=== PATIENT | male | born 1970 | race Caucasian/White ===

== ENCOUNTER → 2016-12-21 | Outpatient (CLI) | payer MEDICARE, OTHER ==
--- NOTE | 2016-12-21 13:51 | MR ---
EXAMINATION TYPE: MR lumbar spine wo con DATE OF EXAM: 12/21/2016 10:51 AM COMPARISON: 12/18/2016 HISTORY: Lumbago TECHNIQUE: T1 and T2 axial and sagittal images of the lumbar spine are submitted. FINDINGS: There is no abnormal signal seen within the visualized spinal cord or paraspinal soft tissu es. Parapelvic renal cysts are noted on the left. At L1-2 there is no evidence of disc herniation or canal stenosis. Mild hypertrophic change of the fa cets. At L2-3 there is moderate facet arthropathy. No disc herniation or canal stenosis. No foraminal encro achment. At L3-4 there is there is mild degenerative disc disease with circumferential disc bulging and modera te to severe facet arthropathy. Mild to moderate bilateral foraminal encroachment and mild canal sten osis. At L4-5 there is degenerative disc disease with broad-based and diffuse disc bulging. Moderate to sev ere bilateral foraminal encroachment and moderate canal stenosis. At L5-S1 there is broad-based central disc protrusion with mild effacement of thecal sac. Marked face t arthropathy with moderate to severe bilateral foraminal encroachment. Mild canal stenosis. IMPRESSION: 1. Multilevel canal stenosis secondary to disc bulging or protrusion with productive facet arthropath y. Significant bilateral multilevel foraminal encroachment as discussed above. Progression at L3-4.
== END | disposition home or self-care (01) ==
LOC: RADMRIMAIN 10:09
PROVIDERS: ATTEND Psychiatry & Neurology Neurology
DX: M48.06 Spinal stenosis, lumbar region (principal); M51.26 Other intervertebral disc displacement, lumbar region; M46.96 Unspecified inflammatory spondylopathy, lumbar region
CPT/HCPCS: 72148

== ENCOUNTER 2018-10-26 20:05 | Observation (INO) | payer MEDICARE, OTHER ==
[2018-10-26] MEDS ORDERED: HEPARIN SODIUM,PORCINE 5,000 UNIT/ML 1 ML VIAL IV PRN (20:38)
[2018-10-26] MEDS ORDERED: HEPARIN SODIUM,PORCINE 10,000 UNIT/ML 1 ML VIAL IV ONE (20:38)
--- NOTE | 2018-10-26 20:40 | ED ---
General Adult HPI <Jc Sung - Last Filed: 10/26/18 22:25> - General Source: patient, EMS Mode of arrival: EMS Limitations: no limitations <Alexey Teran - Last Filed: 11/01/18 15:54> - General Chief complaint: Recheck/Abnormal Lab/Rx Stated complaint: GROIN PAIN Time Seen by Provider: 10/26/18 20:10 - Related Data Home Medications Medication Instructions Recorded Confirmed Budesonide-Formot 160-4.5 Mcg 2 puff INHALATION RT-BID 10/09/14 10/26/18 [Symbicort 160-4.5 Mcg Inhaler] Cyclobenzaprine [Flexeril] 10 mg PO TID 10/09/14 10/26/18 Pregabalin [Lyrica] 300 mg PO BID 10/09/14 10/26/18 DULoxetine HCL [Cymbalta] 60 mg PO BID 01/19/15 10/26/18 Lisinopril [Prinivil] 20 mg PO DAILY 01/19/15 10/26/18 lamoTRIgine [LaMICtal] 100 mg PO DAILY 01/19/15 10/26/18 Morphine Sulfate ER [Ms Contin] 15 mg PO Q12HR 01/09/18 10/26/18 Morphine Sulfate ER [Ms Contin] 30 mg PO Q12HR 01/09/18 10/26/18 Albuterol Inhaler [Ventolin Hfa 2 puff INHALATION RT-QID 10/26/18 10/26/18 Inhaler] Butalb/APAP/Caff 50-325-40Mg 1 tab PO Q8H 10/26/18 10/26/18 [Fioricet 50-325-40] Ferrous Sulfate [Feosol] 325 mg PO DAILY 10/26/18 10/26/18 Furosemide [Lasix] 20 mg PO DAILY 10/26/18 10/26/18 Ipratropium-Albuterol Nebulize 3 ml INHALATION RT-QID 10/26/18 10/26/18 [Duoneb 0.5 mg-3 mg/3 ml Soln] Omeprazole 20 mg PO DAILY 10/26/18 10/26/18 Potassium Chloride [K-Tab ER] 10 meq PO DAILY 10/26/18 10/26/18 Allergies Allergy/AdvReac Type Severity Reaction Status Date / Time Penicillins Allergy Unknown Verified 10/26/18 20:27 Childhood Review of Systems ROS Other: All systems not noted in ROS Statement are negative. <Jc Sung - Last Filed: 10/26/18 22:25> ROS Other: All systems not noted in ROS Statement are negative. <Alexey Teran - Last Filed: 11/01/18 15:54> ROS Statement: Those systems with pertinent positive or pertinent negative responses have been documented in the HPI. Past Medical History Past Medical History: Diabetes Mellitus, Deep Vein Thrombosis (DVT), GERD/Reflux , Hyperlipidemia, Hypertension, Osteoarthritis (OA), Sleep Apnea/CPAP/BIPAP Additional Past Medical History / Comment(s): BACK PAIN, HIATAL HERNIA , HX OF DVT 2002 , No longer uses C-PAP MACHINE, HX OF FALL FROM 6 FT LADDER & COLLAPSED LUNG., NEUROPATHY LEGS & FEET. History of Any Multi-Drug Resistant Organisms: MRSA Date of last positivie culture/infection: 05/2015 MDRO Source:: Right Hand, Base of head and neck Past Surgical History: Bariatric Surgery, Cholecystectomy, Hernia Repair, Orthopedic Surgery Additional Past Surgical History / Comment(s): EGD 09/07 , INGUINAL HERNIA, LEFT ROTATOR CUFF REPAIR, THUMB SURG., LUNG SURGERY (2002 AFTER FALL ).01-26-15 HAD GASTRIC SX- ROU EN Y. 2014 amputation of 3rd and 4th toe right foot. No toes on right foot. Past Anesthesia/Blood Transfusion Reactions: No Reported Reaction Past Psychological History: No Psychological Hx Reported Smoking Status: Former smoker Past Alcohol Use History: None Reported Past Drug Use History: Marijuana - Past Family History Mother Family Medical History: Deep Vein Thrombosis (DVT) Father Family Medical History: Cancer Additional Family Medical History / Comment(s): . <Alexey Teran - Last Filed: 11/01/18 15:54> General Exam Limitations: no limitations <Alexey Teran - Last Filed: 11/01/18 15:54> Vital Signs 10/26/18 10/27/18 20:10 00:20 Temperature 97.6 F 98.7 F Pulse Rate 61 63 Respiratory 18 16 Rate Blood Pressure 122/75 110/65 O2 Sat by Pulse 97 97 Oximetry Medical Decision Making <Jc Sung - Last Filed: 10/26/18 22:25> - Lab Data Result diagrams: 10/27/18 08:33 10/27/18 08:33 <Alexey Teran - Last Filed: 11/01/18 15:54> - Medical Decision Making Dictation was produced using [employer] dictation software. please excuse any grammatical, word or spelling errors. Chief Complaint: 48-year-old male with multiple comorbidities transfusion here from [facility] for left lower extremity ultrasound possible diabetic foot ulcer. History of Present Illness: Patient's 48-year-old female. She states that she' s been having left groin pain and left Pricilla swelling for approximately one week. States that he was st Primary care doctor however ended up at the emergency department. He performed labs and imaging studies. There was no HPI transferred with patient. Patient states he is here for ultrasound. Patient states that he does have some abdominal pain with urination. According to patient he also received antibiotics for possible diabetic foot ulcer. He was started on heparin and given vancomycin. The ROS documented in this emergency department record has been reviewed and confirmed by me. Those systems with pertinent positive or negative responses have been documented in the HPI. All other systems are other negative and/or noncontributory. PHYSICAL EXAM: General Impression: Alert and oriented x3, not in acute distress HEENT: Normocephalic atraumatic, extra-ocular movements intact, pupils equal and reactive to light bilaterally, mucous membranes moist. Cardiovascular: Heart regular rate and rhythm, S1&S2 audible, no murmurs, rubs or gallops Chest: Lungs clear to auscultation bilaterally, no rhonchi, no wheeze, no rales Abdomen: Bowel sounds present, abdomen soft, non-tender, non-distended, no organomegaly Musculoskeletal: Pulses present and equal in all extremities, no peripheral edema, tenderness to palpation over the left groin area. No palpable hernia with Valsalva Motor: Power 5/5 bilaterally, no focal deficits noted Neurological: CN II-XII grossly intact, no focal motor or sensory deficits noted Skin: Ulcer noted to the second toe on the left foot without any significant tract to the bone Psych: Normal affect and mood ED course: 48-year-old male presents via transfer from [facility] for diabetic foot ulcer and possible left lower extremity deep venous thrombosis. Signs upon arrival are within acceptable limits. Patient is sent out to oncoming physician for follow-up of ultrasound and further care. (Alexey Teran) Disposition <Jc Sung - Last Filed: 10/26/18 22:25> Decision Time: 15:54 <Alexey Teran - Last Filed: 11/01/18 15:54> Clinical Impression: Leg swelling Disposition: ADMITTED IP TO THIS HOSP Condition: Stable
[2018-10-26] MEDS ORDERED: HEPARIN SOD,PORK IN 0.45% NACL 25,000 UNIT in 0.45% NACL 1 250ML.BAG IV SCH (20:45)
--- NOTE | 2018-10-26 21:23 | US ---
EXAMINATION TYPE: US venous doppler duplex LE LT DATE OF EXAM: 10/26/2018 8:36 PM COMPARISON: NONE CLINICAL HISTORY: Pain. left groin pain and known left foot infection SIDE PERFORMED: Left TECHNIQUE: The lower extremity deep venous system is examined utilizing real time linear array sonog katt with graded compression, doppler sonography and color-flow sonography. VESSELS IMAGED: External Iliac Vein (EIV) Common Femoral Vein Deep Femoral Vein Greater Saphenous Vein * Femoral Vein Popliteal Vein Small Saphenous Vein * Proximal Calf Veins (* superficial vessels) Left Leg: Appears negative for DVT, 3.9cm cluster of lymph nodes seen at level of patients complaint in left groin IMPRESSION: No evidence of deep venous thrombosis in the left leg. There is left inguinal adenopathy.
[2018-10-26] MEDS ORDERED: NALOXONE 0.4 MG/ML 1 ML VIAL IV PRN (22:37)
[2018-10-26] MEDS ORDERED: VANCOMYCIN IV PER PHARMACY 1 EACH MISC MISCELLANE PRN (22:55)
[2018-10-26] MEDS ORDERED: BUTALB/APAP/CAFF 50-325-40MG TAB PO PRN (23:00)
[2018-10-27 00:41] LABS: Glucose,Whole Blood 108 mg/dL (75-99)
--- NOTE | 2018-10-27 02:18 | P.HPIM ---
History of Present Illness H&P Date: 10/27/18 Chief Complaint: Transfer from [facility] for venous duplex ultrasound 48-year-old male with history of diabetes. Patient was transferred from [facility] to our facility to have a venous duplex ultrasound of the lower extremities to rule out DVT. This was done in the ED and there was no evidence of DVT. Patient went to the [facility] to 1-2 day history of off-and-on left groin pain he describes this sharp pain no precipitating factors rated at 7 out of 10 in severity and nonradiating happened all of a sudden never experienced something similar in the past it is associated with some dysuria denies any flank pain fevers chills nausea vomiting denies any hematuria denies any urgency or frequency in urination denies any neck trachea. Patient also reported some pain in his left thigh and leg without any swelling. He also has wound over his left second toe from the plantar surface this been going on for couple weeks. Denies any drainage. Patient otherwise denies any shortness of breath or chest pain trouble breathing fevers chills coughing abdominal pain denies any diarrhea denies any focal neurologic deficits. Venous duplex ultrasound was performed and was negative for DVT At her left facility CAT scan of the abdomen was performed and showed hydronephrosis over the left kidney without any evidence of ureteral dilatation or stones. Patient currently feels comfortable sleeping with minimal pain. In the emergency department initially patient was started on heparin drip after obtaining results venous duplex ultrasound heparin drip was discontinued. Patient received a dose of vancomycin as [facility]. Review of Systems Pertinent positives as noted in HPI. All other systems were reviewed and are negative Patient indicated he is not using his CPAP anymore or any insulin or oral hypoglycemic agents since he had lost significant amount of weight after his gastric bypass surgery. Past Medical History Past Medical History: Diabetes Mellitus, Deep Vein Thrombosis (DVT), GERD/Reflux , Hyperlipidemia, Hypertension, Osteoarthritis (OA), Sleep Apnea/CPAP/BIPAP Additional Past Medical History / Comment(s): BACK PAIN, HIATAL HERNIA , HX OF DVT 2002 , No longer uses C-PAP MACHINE, HX OF FALL FROM 6 FT LADDER & COLLAPSED LUNG (2002)., NEUROPATHY LEGS & FEET. History of Any Multi-Drug Resistant Organisms: MRSA Date of last positivie culture/infection: 05/2015 MDRO Source:: Right Hand, Base of head and neck Past Surgical History: Bariatric Surgery, Cholecystectomy, Hernia Repair, Orthopedic Surgery Additional Past Surgical History / Comment(s): EGD 09/07 , INGUINAL HERNIA, LEFT ROTATOR CUFF REPAIR, THUMB SURG., LUNG SURGERY (2003 AFTER FALL ).01-26-15 HAD GASTRIC SX- ROU EN Y. 2014 amputation of 3rd and 4th toe right foot. No toes on right foot. heart cath 2013 with no stents Past Anesthesia/Blood Transfusion Reactions: No Reported Reaction Past Psychological History: No Psychological Hx Reported Additional Psychological History / Comment(s): states "mood disorder" Smoking Status: Former smoker Past Alcohol Use History: None Reported Additional Past Alcohol Use History / Comment(s): HAS QUIT SMOKING IN PAST FROM 2002 TO 2006 THEN STARTED BACK UP BUT QUIT AGAIN Past Drug Use History: Marijuana - Past Family History Mother Family Medical History: Deep Vein Thrombosis (DVT) Father Family Medical History: Cancer Additional Family Medical History / Comment(s): . Medications and Allergies Home Medications Medication Instructions Recorded Confirmed Type Budesonide-Formot 160-4.5 Mcg 2 puff INHALATION RT-BID 10/09/14 10/26/18 History [Symbicort 160-4.5 Mcg Inhaler] Cyclobenzaprine [Flexeril] 10 mg PO TID 10/09/14 10/26/18 History Pregabalin [Lyrica] 300 mg PO BID 10/09/14 10/26/18 History DULoxetine HCL [Cymbalta] 60 mg PO BID 01/19/15 10/26/18 History Lisinopril [Prinivil] 20 mg PO DAILY 01/19/15 10/26/18 History lamoTRIgine [LaMICtal] 100 mg PO DAILY 01/19/15 10/26/18 History Morphine Sulfate ER [Ms Contin 15 mg PO Q12HR 01/09/18 10/26/18 History 15Mg] Morphine Sulfate ER [Ms Contin 30 mg PO Q12HR 01/09/18 10/26/18 History 30Mg] Albuterol Inhaler [Ventolin Hfa 2 puff INHALATION RT-QID 10/26/18 10/26/18 History Inhaler] Budesonide [Pulmicort] 0.5 mg INHALATION RT-BID 10/26/18 10/26/18 History Butalb/APAP/Caff 50-325-40Mg 1 tab PO Q8H 10/26/18 10/26/18 History [Fioricet 50-325-40] Ferrous Sulfate [Feosol] 325 mg PO DAILY 10/26/18 10/26/18 History Furosemide [Lasix] 20 mg PO DAILY 10/26/18 10/26/18 History Ipratropium-Albuterol Nebulize 3 ml INHALATION RT-QID 10/26/18 10/26/18 History [Duoneb 0.5 mg-3 mg/3 ml Soln] Omeprazole 20 mg PO DAILY 10/26/18 10/26/18 History Potassium Chloride [K-Tab ER] 10 meq PO DAILY 10/26/18 10/26/18 History Allergies Allergy/AdvReac Type Severity Reaction Status Date / Time Penicillins Allergy Unknown Verified 10/26/18 20:27 Childhood Physical Exam Vitals: Vital Signs Temp Pulse Resp BP Pulse Ox 10/27/18 01:20 16 10/27/18 00:20 98.7 F 63 16 110/65 97 10/26/18 20:10 97.6 F 61 18 122/75 97 Intake and Output 10/26/18 10/26/18 10/27/18 14:59 22:59 06:59 Other: Voiding Method Toilet Toilet Weight 99.79 kg Constitutional: No acute distress, conversant, pleasant Eyes: Anicteric sclerae, moist conjunctiva, no lid-lag Pupils equal round reactive to light ENMT: NC/AT Oropharynx clear, no erythema, exudates Neck: Supple, FROM, no masses, or JVD No carotid bruits No thyromegaly Lungs: Clear to auscultation Clear to percussion Normal respiratory effort, no accessory muscle use Cardiovascular: Heart regular in rate and rhythm, No murmurs, gallops, or rubs No peripheral edema Abdominal: Soft Nontender, no guarding, rebound or rigidity Abdomen moving with respiration Normoactive bowel sounds No hepatomegaly, No splenomegaly No palpable mass No abdominal wall hernia noted Skin: Normal temperature, tone, texture, turgor No induration No subcutaneous nodules No rash, lesions Ulcer 1 x 1 cm over the plantar aspect of the left second toe not probing to the bone, no drainage, slight redness no induration no tenderness to palpation Extremities: Patient has right mid metatarsal" No digital cyanosis No clubbing Pedal pulses intact over the left foot, weak over the right foot Radial pulses intact and symmetrical No calf tenderness Psychiatric: Alert and oriented to person, place and time Appropriate affect fair judgment Neuro Muscles Strength 5/5 in all 4 extremities Sensation to light touch grossly present throughout Cranial nerves II-XII grossly intact No focal sensory deficits Lymphatics: no palpable cervical or supraclavicular , or inguinal lymph nodes Results Labs: Abnormal Lab Results - Last 24 Hours (Table) 10/27/18 Range/Units 00:40 POC Glucose (mg/dL) 108 H (75-99) mg/dL Thrombosis Risk Factor Assmnt - Choose All That Apply Any of the Below Risk Factors Present?: Yes Each Factor Represents 1 point: Age 41-60 years, Obesity (BMI >25) Each Risk Factor Represents 3 Points: History of DVT/PE Thrombosis Risk Factor Assessment Total Risk Factor Score: 5 Thrombosis Risk Factor Assessment Level: High Risk Assessment and Plan Assessment: 48-year-old male with history of diabetes admitted under observation with anticipated length of stay less than 48 hours was transferred from [facility] to obtain venous duplex ultrasound to rule out left lower extremity DVT. Patient presented to their facility with left groin pain. Computed tomography scan of the abdomen showed left hydronephrosis. Patient also has left foot diabetic ulcer. Patient labs from [facility] were reviewed and were all unremarkable Plan: Left hydronephrosis Dysuria Check urine analysis No leukocytosis no fevers Diabetic foot ulcer over the left second toe plantar aspect With care ID consultation Patient received a dose of vancomycin at [facility] No fevers no leukocytosis History of diabetes mellitus currently not on any medications Insulin sliding scale Patient was initiated on heparin drip at [facility] due to suspicion of left leg DVT, venous duplex ultrasound at our facility showed no evidence of deep venous thrombosis. Heparin drip discontinued DVT prophylaxis heparin subcu 3 times a day Hypertension currently stable COPD currently compensated Surrogate decision-maker: Patient's Sister CODE STATUS: Full code Discussed with: Patient, ER, RN Anticipated discharge: <[address]: Home A total of 55 minutes was spent on the care of this complex patient more than 50 % of the time was spent in counseling and care coordination.
[2018-10-27] MEDS ORDERED: VANCOMYCIN 1,500 MG in SODIUM CHLORIDE 0.9% 250 ML IVPB SCH (02:30)
[2018-10-27 02:52] LABS: Appearance,Urine Clear (Clear); Bilirubin,Urine Negative (Negative); Blood,Urine Negative (Negative); Color,Urine Yellow; Glucose,Urine (UA) Negative (Negative); Ketones,Urine Negative (Negative); Leukocyte Esterase,Urine Negative (Negative); Nitrite,Urine Negative (Negative); PH, Urine 5.5 (5.0-8.0); Protein,Urine Negative (Negative); Specific Gravity,Urine 1.014 (1.001-1.035); Urobilinogen,Urine <2.0 mg/dL (<2.0)
[2018-10-27] MEDS: VANCOMYCIN 1,750 MG in SODIUM CHLORIDE 0.9% 500 ML 500 ML IVPB SCH ×2 (02:56→14:58)
[2018-10-27] MEDS: SODIUM CHLORIDE 0.9% 1,000 ML IV SCH ×2 (02:56→20:53)
[2018-10-27 06:51] LABS: Glucose,Whole Blood 80 mg/dL (75-99)
[2018-10-27] MEDS: SYMBICORT 160-4.5 MCG INHALER INHALATION SCH ×2 (07:42→21:21)
[2018-10-27] MEDS: IPRATROPIUM-ALBUTEROL 3 ML NEB INHALATION SCH ×4 (07:42→21:21)
[2018-10-27] MEDS ORDERED: BUDESONIDE 0.5 MG/2 ML NEBU INHALATION SCH (08:00)
[2018-10-27] MEDS ORDERED: ALBUTEROL INHALER 60 PUFF/8 GM INHALER INHALATION SCH (08:00)
[2018-10-27 08:55] LABS: Basophils % (A) 0 %; Eosinophils # (A) 0.2 k/uL (0-0.7); Eosinophils % (A) 2 %; HCT 37.9 % (39.0-53.0); HGB 11.8 gm/dL (13.0-17.5); Lymphocytes # (A) 1.5 k/uL (1.0-4.8); Lymphocytes % (A) 22 %; MCH 29.3 pg (25.0-35.0); MCHC 31.3 g/dL (31.0-37.0); MCV 93.8 fL (80.0-100.0); Mean Platelet Volume 7.1; Monocytes # (A) 0.3 k/uL (0-1.0); Monocytes % (A) 4 %; Neutrophils # (A) 4.7 k/uL (1.3-7.7); Neutrophils % (A) 70 %; Platelet Count 195 k/uL (150-450); RBC 4.04 m/uL (4.30-5.90); WBC 6.8 k/uL (3.8-10.6)
[2018-10-27 09:05] LABS: Anion Gap 5 mmol/L; Blood Urea Nitrogen 15 mg/dL (9-20); Calcium 8.4 mg/dL (8.4-10.2); Carbon Dioxide 26 mmol/L (22-30); Chloride 110 mmol/L (98-107); Glucose 187 mg/dL (74-99); Sodium 141 mmol/L (137-145)
[2018-10-27 09:06] LABS: Potassium 4.6 mmol/L (3.5-5.1)
[2018-10-27] MEDS: MORPHINE SULFATE ER 15 MG TABLET PO SCH ×2 (09:15→20:52)
[2018-10-27] MEDS: PREGABALIN 100 MG CAP PO SCH ×2 (09:15→20:53)
[2018-10-27] MEDS: DULoxetine HCL 60 MG CAPSULE.DR PO SCH ×2 (09:16→20:52)
[2018-10-27] MEDS: CYCLOBENZAPRINE 10 MG TAB PO SCH ×3 (09:16→20:52)
[2018-10-27] MEDS: POTASSIUM CHLORIDE ER 10 MEQ TAB.ER.PRT PO SCH (09:16)
[2018-10-27] MEDS: MORPHINE SULFATE ER 30 MG TABLET PO SCH ×2 (09:16→20:52)
[2018-10-27] MEDS: FUROSEMIDE 20 MG TAB PO SCH (09:16)
[2018-10-27] MEDS: PANTOPRAZOLE 40 MG TABLET PO SCH (09:16)
[2018-10-27] MEDS: lamoTRIgine 100 MG TAB PO SCH (09:16)
[2018-10-27] MEDS: FERROUS SULFATE 325 MG TAB PO SCH (09:16)
[2018-10-27] MEDS: LISINOPRIL 20 MG TAB PO SCH (09:17)
[2018-10-27 11:47] LABS: Glucose,Whole Blood 116 mg/dL (75-99)
[2018-10-27] MEDS ORDERED: INSULIN ASPART 100 UNIT/ML 1 ML 10 ML VIAL SQ SCH (12:30)
--- NOTE | 2018-10-27 13:01 | P.GSCN ---
History of Present Illness Consult date: 10/27/18 History of present illness: The patient is a 48-year-old diabetic who came from [facility] emergency room for further evaluation of left lower quadrant left groin and left foot pain. The patient is a known diabetic with previous right toe amputation. He was sent down for further evaluation for possible DVT. During this evaluation he apparently had a CAT scan of the chest and abdomen. CAT scan of the abdomen showed mild to moderate left hydronephrosis and we're asked see the patient. The patient is interviewed at the bedside and is comfortable. He denies any urologic history. He denies any hematuria. There is no history of stones. He did state several days ago for a couple of days he had severe left upper quadrant pain. The CAT scan shows what appears to be a left UPJ obstruction mild to moderate. There is some mild caliectasis. There is a 6-7 mm stone in the left lower pole calyx. The ureter and bladder unremarkable. His urine is clear. His creatinine is 0.9. Review of Systems - Constitutional Reports chronic pain - Gastrointestinal Reports as per HPI - Musculoskeletal Reports as per HPI Past Medical History Past Medical History: Diabetes Mellitus, Deep Vein Thrombosis (DVT), GERD/Reflux , Hyperlipidemia, Hypertension, Osteoarthritis (OA), Sleep Apnea/CPAP/BIPAP Additional Past Medical History / Comment(s): BACK PAIN, HIATAL HERNIA , HX OF DVT 2002 , No longer uses C-PAP MACHINE, HX OF FALL FROM 6 FT LADDER & COLLAPSED LUNG (2002)., NEUROPATHY LEGS & FEET. History of Any Multi-Drug Resistant Organisms: MRSA Year Discovered:: 05/2015 MDRO Source:: Right Hand, Base of head and neck Past Surgical History: Bariatric Surgery, Cholecystectomy, Hernia Repair, Orthopedic Surgery Additional Past Surgical History / Comment(s): EGD 09/07 , INGUINAL HERNIA, LEFT ROTATOR CUFF REPAIR, THUMB SURG., LUNG SURGERY (2002 AFTER FALL ).5 HAD GASTRIC SX- ROU EN Y. 2014 amputation of 3rd and 4th toe right foot. No toes on right foot. heart cath 2013 with no stents Past Anesthesia/Blood Transfusion Reactions: No Reported Reaction Past Psychological History: No Psychological Hx Reported Additional Psychological History / Comment(s): states "mood disorder" Smoking Status: Former smoker Past Alcohol Use History: None Reported Additional Past Alcohol Use History / Comment(s): HAS QUIT SMOKING IN PAST FROM 2002 TO 2006 THEN STARTED BACK UP BUT QUIT AGAIN Past Drug Use History: Marijuana - Past Family History Mother Family Medical History: Deep Vein Thrombosis (DVT) Father Family Medical History: Cancer Additional Family Medical History / Comment(s): . Medications and Allergies Home Medications Medication Instructions Recorded Confirmed Type Budesonide-Formot 160-4.5 Mcg 2 puff INHALATION RT-BID 10/09/14 10/26/18 History [Symbicort 160-4.5 Mcg Inhaler] Cyclobenzaprine [Flexeril] 10 mg PO TID 10/09/14 10/26/18 History Pregabalin [Lyrica] 300 mg PO BID 10/09/14 10/26/18 History DULoxetine HCL [Cymbalta] 60 mg PO BID 01/19/15 10/26/18 History Lisinopril [Prinivil] 20 mg PO DAILY 01/19/15 10/26/18 History lamoTRIgine [LaMICtal] 100 mg PO DAILY 01/19/15 10/26/18 History Morphine Sulfate ER [Ms Contin 15 mg PO Q12HR 01/09/18 10/26/18 History 15Mg] Morphine Sulfate ER [Ms Contin 30 mg PO Q12HR 01/09/18 10/26/18 History 30Mg] Albuterol Inhaler [Ventolin Hfa 2 puff INHALATION RT-QID 10/26/18 10/26/18 History Inhaler] Budesonide [Pulmicort] 0.5 mg INHALATION RT-BID 10/26/18 10/26/18 History Butalb/APAP/Caff 50-325-40Mg 1 tab PO Q8H 10/26/18 10/26/18 History [Fioricet 50-325-40] Ferrous Sulfate [Feosol] 325 mg PO DAILY 10/26/18 10/26/18 History Furosemide [Lasix] 20 mg PO DAILY 10/26/18 10/26/18 History Ipratropium-Albuterol Nebulize 3 ml INHALATION RT-QID 10/26/18 10/26/18 History [Duoneb 0.5 mg-3 mg/3 ml Soln] Omeprazole 20 mg PO DAILY 10/26/18 10/26/18 History Potassium Chloride [K-Tab ER] 10 meq PO DAILY 10/26/18 10/26/18 History Allergies Allergy/AdvReac Type Severity Reaction Status Date / Time Penicillins Allergy Unknown Verified 10/26/18 20:27 Childhood Surgical - Exam Vital Signs Temp Pulse Resp BP Pulse Ox 97.6 F 61 18 122/75 97 10/26/18 20:10 10/26/18 20:10 10/26/18 20:10 10/26/18 20:10 10/26/18 20:10 - General well developed, well nourished, no distress - Eyes PERRL - ENT no hearing loss - Neck trachea midline - Respiratory normal expansion, normal respiratory effort - Cardiovascular Rhythm: regular - Abdomen Abdomen: soft, non tender - Genitourinary normal penis with no external lesions, testicles present - Integumentary The skin is dry. His foot hygiene is poor. His nail hygiene is poor. Previous amputation of right toes. - Musculoskeletal normal posture - Psychiatric oriented to time, oriented to person, oriented to place, speech is normal, memory intact Results - Labs 10/27/18 08:33 10/27/18 08:33 Abnormal Lab Results - Last 24 Hours (Table) 10/27/18 10/27/18 10/27/18 Range/Units 00:40 08:33 08:33 RBC 4.04 L (4.30-5.90) m/uL Hgb 11.8 L (13.0-17.5) gm/dL Hct 37.9 L (39.0-53.0) % Chloride 110 H (98-107) mmol/L Glucose 187 H (74-99) mg/dL POC Glucose (mg/dL) 108 H (75-99) mg/dL 10/27/18 Range/Units 11:45 RBC (4.30-5.90) m/uL Hgb (13.0-17.5) gm/dL Hct (39.0-53.0) % Chloride (98-107) mmol/L Glucose (74-99) mg/dL POC Glucose (mg/dL) 116 H (75-99) mg/dL Diabetes panel 10/27/18 Range/Units 08:33 Sodium 141 (137-145) mmol/L Potassium 4.6 (3.5-5.1) mmol/L Chloride 110 H (98-107) mmol/L Carbon Dioxide 26 (22-30) mmol/L BUN 15 (9-20) mg/dL Creatinine 0.75 (0.66-1.25) mg/dL Glucose 187 H (74-99) mg/dL Calcium 8.4 (8.4-10.2) mg/dL Calcium panel 10/27/18 Range/Units 08:33 Calcium 8.4 (8.4-10.2) mg/dL Pituitary panel 10/27/18 Range/Units 08:33 Sodium 141 (137-145) mmol/L Potassium 4.6 (3.5-5.1) mmol/L Chloride 110 H (98-107) mmol/L Carbon Dioxide 26 (22-30) mmol/L BUN 15 (9-20) mg/dL Creatinine 0.75 (0.66-1.25) mg/dL Glucose 187 H (74-99) mg/dL Calcium 8.4 (8.4-10.2) mg/dL Adrenal panel 10/27/18 Range/Units 08:33 Sodium 141 (137-145) mmol/L Potassium 4.6 (3.5-5.1) mmol/L Chloride 110 H (98-107) mmol/L Carbon Dioxide 26 (22-30) mmol/L BUN 15 (9-20) mg/dL Creatinine 0.75 (0.66-1.25) mg/dL Glucose 187 H (74-99) mg/dL Calcium 8.4 (8.4-10.2) mg/dL - Imaging CT scan - abdomen: report reviewed, image reviewed CT scan - pelvis: report reviewed, image reviewed Assessment and Plan Assessment: Impression: 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 Left lower pole stone 6 mm. Recent history of left upper quadrant pain. No urologic history. Ultimately medical problems Recommendations: Upon reviewing the CAT scan the possibilities are congenital UPJ obstruction with a small stone or perhaps a recent attempt at stone passage secondary mild Sarver. I don't see an extrinsic masses or compression on the UPJ. Since the patient is asymptomatic urologically nothing further needs to be done at this point in time. I would like to see the patient in the office in 4-6 weeks to do an ultrasound and see if the hydronephrosis persists. An appointment should be made for the patient upon discharge
[2018-10-27] MEDS: INSULIN ASPART 100 UNIT/ML 1 ML 10 ML VIAL SQ SCH ×3 (14:54→20:34)
[2018-10-27] MEDS: HYDROcodone/APAP 5-325MG 1 EACH TAB PO PRN (14:57)
[2018-10-27 16:50] LABS: Glucose,Whole Blood 167 mg/dL (75-99)
[2018-10-27 18:39] LABS: Hemoglobin A1C 5.5 % (4.0-6.0)
[2018-10-27 19:57] LABS: Glucose,Whole Blood 116 mg/dL (75-99)
[2018-10-28] MEDS: HYDROcodone/APAP 5-325MG 1 EACH TAB PO PRN (02:36)
--- NOTE | 2018-10-28 03:32 | CONS ---
CONSULTATION DATE OF SERVICE: 10/27/2018. REASON FOR CONSULTATION: Left diabetic foot ulcer. HISTORY OF PRESENT ILLNESS: The patient is a 48-year-old male with a initially presented to the [facility] with pain to the left groin in the left flank area. The patient's pain apparently has been going on for another two weeks before presentation to the hospital. The patient at that facility did have a CT of the abdomen and pelvis suggestive of a left-sided hydronephrosis. The patient also noticed to have a wound on his left big and second toe which apparently the patient has had for a couple of days to weeks. The patient denies a history of any trauma. Denies significant pain to the wound area which is mostly currently drying out with no significant swelling, redness or any drainage. The patient subsequently has been transferred to the [facility] for evaluation by the urology. Urology has seen the patient, recommending no intervention at this point. Infectious Disease was consulted for recommendation regarding and local wound care and need for antibiotic therapy. Patient also already feeling better as far as the abdominal pain is concerned. Denies any burning or frequency of urine. No hematuria. No nausea, vomiting. REVIEW OF SYSTEMS: Positive points have been mentioned in HPI. Review of systems has been negative. PAST MEDICAL HISTORY: Diabetes mellitus, DVT, gastroesophageal reflux disease, hypertension, hyperlipidemia, osteoarthritis, sleep apnea, hiatal hernia, chronic back pain, infection. PAST SURGICAL HISTORY: Bariatric surgery, cholecystectomy, hernia repair, history of bypass. SOCIAL HISTORY: Remote history of smoking, marijuana use, no drinking. FAMILY HISTORY: Mother with history of DVT. Father history of cancer. ALLERGIES: PENICILLIN. MEDICATIONS: The patient is currently on vancomycin, pharmacy dosing; Kimberly, DuoNeb, Symbicort, Flexeril, Cymbalta, iron sulfate, Lasix, NovoLog, Lamictal, Zestril, MS Contin, Narcan, Protonix, K-Dur, Lyrica. PHYSICAL EXAMINATION: Blood pressure 130/60 with a pulse of 68. Temperature is 97.2. He is 97% on room air. General description is a middle-aged male lying in bed in no distress. No tachypnea or accessory muscles of respiration use. HEENT: Shows no pallor or scleral icterus. Oral mucosa membranes are dry. No pharyngeal erythema or thrush. Neck : Trachea is central. No thyromegaly. Lungs unlabored breathing. Clear to auscultation anteriorly. Heart S1, S2. Regular rate and rhythm. ABDOMEN: Soft, no tenderness. No guarding. No rigidity. Extremities: No edema of the feet. Examination of the left foot, the first and second toe, did have a wound which is currently drying out. No significant swelling, redness or any drainage. Neurological: Patient is awake, alert, oriented times three. Mood and affect normal. LABS: Hemoglobin 11.1, white count 6.8 with a BUN of 15, creatinine 0.75. DIAGNOSTIC IMPRESSION AND PLAN: Patient with left diabetic foot ulcer with in a patient who did have a wound on the tip of the left 2nd toe, more likely pressure related. Clinically doubt any associated or underlying deep infection, there is no osteomyelitis recommending local wound care PLAN: 1. Aquacel silver dressing to the left second toe. The patient has been advised that to keep the pressure the area off the pressure. 2. We will obtain x-rays of the left foot as well as if normal no further workup will be recommended and the patient will be advised local wound care only. 3. As clinical suspicion low for underlying cellulitis secondary infection, recommend discontinue the vancomycin to decrease risk of nephrotoxicity. 4. We will follow up on clinical condition and further adjust medication if needed. Thank you for this consultation. We will follow this patient along with you. MMODL / IJN: [id number] /
[2018-10-28 06:49] LABS: Glucose,Whole Blood 84 mg/dL (75-99)
[2018-10-28] MEDS: IPRATROPIUM-ALBUTEROL 3 ML NEB INHALATION SCH ×2 (07:13→11:26)
[2018-10-28] MEDS: SYMBICORT 160-4.5 MCG INHALER INHALATION SCH (07:13)
--- NOTE | 2018-10-28 07:20 | XR ---
EXAMINATION TYPE: XR foot complete LT DATE OF EXAM: 10/28/2018 CLINICAL HISTORY: left 1st and 2nd toe tip wound TECHNIQUE: Frontal, lateral and oblique images of the left foot are obtained. COMPARISON: May 23, 2012 FINDINGS: There is no acute fracture/dislocation evident. The joint spaces appear within normal cedeno its. There is a linear radiopaque density at the level of the interphalangeal joint of the right toe. No evidence for osteomyelitis. IMPRESSION: There is no acute fracture or dislocation. ICD 10 NO FRACTURE, INITIAL EVALUATION
[2018-10-28] MEDS: INSULIN ASPART 100 UNIT/ML 1 ML 10 ML VIAL SQ SCH ×2 (07:25→11:55)
[2018-10-28 07:27] VITALS: RESP 18
[2018-10-28] MEDS: MORPHINE SULFATE ER 15 MG TABLET PO SCH (08:42)
[2018-10-28] MEDS: CYCLOBENZAPRINE 10 MG TAB PO SCH (08:42)
[2018-10-28] MEDS: DULoxetine HCL 60 MG CAPSULE.DR PO SCH (08:42)
[2018-10-28] MEDS: PREGABALIN 100 MG CAP PO SCH (08:42)
[2018-10-28] MEDS: MORPHINE SULFATE ER 30 MG TABLET PO SCH (08:43)
[2018-10-28] MEDS: FUROSEMIDE 20 MG TAB PO SCH (08:44)
[2018-10-28] MEDS: PANTOPRAZOLE 40 MG TABLET PO SCH (08:44)
[2018-10-28] MEDS: LISINOPRIL 20 MG TAB PO SCH (08:44)
[2018-10-28] MEDS: POTASSIUM CHLORIDE ER 10 MEQ TAB.ER.PRT PO SCH (08:44)
[2018-10-28] MEDS: lamoTRIgine 100 MG TAB PO SCH (08:44)
[2018-10-28] MEDS: FERROUS SULFATE 325 MG TAB PO SCH (08:44)
[2018-10-28 11:28] VITALS: BP 125/67; TEMP 98.2
[2018-10-28 11:35] VITALS: PULSE 69
[2018-10-28 11:48] LABS: Glucose,Whole Blood 107 mg/dL (75-99)
--- NOTE | 2018-10-28 18:03 | P.DS ---
Providers Date of admission: 10/26/18 22:37 Expected date of discharge: 10/28/18 Attending physician: Chris Joshi MD Consults: 10/27/18 02:18 Consult Physician Routine Consulting Provider: Bud Madsen Consult Reason/Comments: left foot ulcer Do you want consulting provider notified?: Yes 10/27/18 02:19 Consult Physician Routine Consulting Provider: Isaiah Zhao Consult Reason/Comments: left hydronephrosis Do you want consulting provider notified?: Yes, Notify in am Primary care physician: [facility] Course: The patient is a 48-year-old male with a PMH of diabetes, hyperlipidemia, hypertension, sleep apnea, and history of DVTs was transferred from [facility] to our facility to undergo lower extremity venous duplex which he underwent in the ED which was negative for DVT. The patient also endorsed 1-2 days of left groin pain along with dysuria and wounds on his left second toe ongoing for the past couple of weeks. At [facility], computed tomography scan of the abdomen had showed hydronephrosis of the left kidney without any evidence of ureteral dilation or stones. The patient was admitted under the medicine service to be evaluated by urology and infectious disease for his left toe ulcer. Infectious disease recommended local wound care since low suspicion for underlying cellulitis. Furthermore urology recommended that since the patient is asymptomatic, with mild hydronephrosis, that the patient may follow-up in 4-6 weeks at the urology clinic with an ultrasound. The patient was seen and examined at the bedside on 10/28/2018. He was in good spirits and free of active complaints. He noted that his groin pain had resolved and he otherwise denied any fever, chills, chest pain, shortness of breath, nausea, or vomiting. He was subsequently discharged to home in stable condition. Physical Examination General: Non-toxic, in no acute distress, appears stated age, overweight HEENT: NC/AT, anicteric sclerae, moist conjunctiva, no lid-lag, PERRLA Cardiovascular: S1/S2 wnl, no murmurs, rubs, or gallops Lungs: Clear to auscultation, normal respiratory effort, no accessory muscle use Abdominal: Soft, non-tender, non-distended, no guarding, rebound, or rigidity Skin: Warm, dry Extremities: No edema or contractures, 1 cm ulcer on the left second toe plantar surface, status post application of right toes Psychiatric: Alert and oriented to person, place and time, appropriate affect Neuro: CN II-XII grossly intact, Strength 5/5 in all 4 extremities, Speech intact, Sensation to light touch grossly intact throughout Discharge diagnosis: Diabetic foot ulcer left second toe; left hydronephrosis, mild; diabetes mellitus; hypertension; hyperlipidemia; sleep apnea; history of DVTs A total of 45 minutes of time were spent preparing this complex discharge summary. Patient Condition at Discharge: Stable Plan - Discharge Summary Discharge Rx Participant: No New Discharge Prescriptions: Continue Budesonide-Formot 160-4.5 Mcg [Symbicort 160-4.5 Mcg Inhaler] 2 puff INHALATION RT-BID Cyclobenzaprine [Flexeril] 10 mg PO TID Pregabalin [Lyrica] 300 mg PO BID lamoTRIgine [LaMICtal] 100 mg PO DAILY Lisinopril [Prinivil] 20 mg PO DAILY DULoxetine HCL [Cymbalta] 60 mg PO BID Morphine Sulfate ER [Ms Contin] 15 mg PO Q12HR Morphine Sulfate ER [Ms Contin] 30 mg PO Q12HR Albuterol Inhaler [Ventolin Hfa Inhaler] 2 puff INHALATION RT-QID Ipratropium-Albuterol Nebulize [Duoneb 0.5 mg-3 mg/3 ml Soln] 3 ml INHALATION RT-QID Ferrous Sulfate [Feosol] 325 mg PO DAILY Potassium Chloride [K-Tab ER] 10 meq PO DAILY Omeprazole 20 mg PO DAILY Furosemide [Lasix] 20 mg PO DAILY Butalb/APAP/Caff 50-325-40Mg [Fioricet 50-325-40] 1 tab PO Q8H Discontinued Budesonide [Pulmicort] 0.5 mg INHALATION RT-BID Discharge Medication List Budesonide-Formot 160-4.5 Mcg [Symbicort 160-4.5 Mcg Inhaler] 2 puff INHALATION RT-BID 10/09/14 [History] Cyclobenzaprine [Flexeril] 10 mg PO TID 10/09/14 [History] Pregabalin [Lyrica] 300 mg PO BID 10/09/14 [History] DULoxetine HCL [Cymbalta] 60 mg PO BID 01/19/15 [History] Lisinopril [Prinivil] 20 mg PO DAILY 01/19/15 [History] lamoTRIgine [LaMICtal] 100 mg PO DAILY 01/19/15 [History] Morphine Sulfate ER [Ms Contin] 15 mg PO Q12HR 01/09/18 [History] Morphine Sulfate ER [Ms Contin] 30 mg PO Q12HR 01/09/18 [History] Albuterol Inhaler [Ventolin Hfa Inhaler] 2 puff INHALATION RT-QID 10/26/18 [ History] Butalb/APAP/Caff 50-325-40Mg [Fioricet 50-325-40] 1 tab PO Q8H 10/26/18 [History ] Ferrous Sulfate [Feosol] 325 mg PO DAILY 10/26/18 [History] Furosemide [Lasix] 20 mg PO DAILY 10/26/18 [History] Ipratropium-Albuterol Nebulize [Duoneb 0.5 mg-3 mg/3 ml Soln] 3 ml INHALATION RT -QID 10/26/18 [History] Omeprazole 20 mg PO DAILY 10/26/18 [History] Potassium Chloride [K-Tab ER] 10 meq PO DAILY 10/26/18 [History] Follow up Appointment(s)/Referral(s): Florinda Jones DO [Primary Care Provider] - 1-2 days Isaiah Zhao MD [STAFF PHYSICIAN] - 6 Weeks Discharge Disposition: HOME SELF-CARE
== END 2018-10-28 13:40 | disposition home or self-care (01) ==
LOC: EC 20:05 → 1SOBS 22:37
PROVIDERS: ADMIT Internal Medicine; ATTEND Internal Medicine
DX: N13.1 Hydronephrosis with ureteral stricture, not elsewhere classified (principal); E11.621 Type 2 diabetes mellitus with foot ulcer; L97.529 Non-pressure chronic ulcer of other part of left foot with unspecified severity; I10 Essential (primary) hypertension; E78.5 Hyperlipidemia, unspecified; G47.30 Sleep apnea, unspecified; K21.9 Gastro-esophageal reflux disease without esophagitis; J44.9 Chronic obstructive pulmonary disease, unspecified; M19.90 Unspecified osteoarthritis, unspecified site; M54.9 Dorsalgia, unspecified; G89.29 Other chronic pain; E11.40 Type 2 diabetes mellitus with diabetic neuropathy, unspecified; F39 Unspecified mood [affective] disorder; Z86.718 Personal history of other venous thrombosis and embolism; Z86.14 Personal history of Methicillin resistant Staphylococcus aureus infection; Z98.0 Intestinal bypass and anastomosis status; Z89.421 Acquired absence of other right toe(s); Z90.49 Acquired absence of other specified parts of digestive tract; Z87.891 Personal history of nicotine dependence; Z80.9 Family history of malignant neoplasm, unspecified; Z79.899 Other long term (current) drug therapy; Z79.891 Long term (current) use of opiate analgesic; Z88.0 Allergy status to penicillin; E66.9 Obesity, unspecified; Z68.29 Body mass index [BMI] 29.0-29.9, adult
CPT/HCPCS: 96366 ×2; 96367; 96365; 99285; 94640 ×4; 80048; 85652; 85025; 86140; 81003; 83036; 73630; 93971; G0378 ×3; J3370; J1644

== ENCOUNTER → 2020-05-19 | Outpatient (CLI) | payer MEDICARE, OTHER ==
--- NOTE | 2020-05-19 12:08 | XR ---
EXAMINATION TYPE: XR foot complete LT DATE OF EXAM: 05/19/2020 CLINICAL HISTORY: pain TECHNIQUE: Frontal, lateral and oblique images of the left foot are obtained. COMPARISON: None. FINDINGS: There is no acute fracture/dislocation evident. There is cortical irregularity and lucency noted to involve the subungual tuft felt to reflect osteomyelitis. There is a linear radiopaque dens ity at the level of the interphalangeal joint of the great toe unchanged from prior study. IMPRESSION: Osteomyelitis of the subungual tuft of the great toe. Linear radiopaque foreign body noted.
== END | disposition home or self-care (01) ==
LOC: RADXRMAIN 11:43
PROVIDERS: ATTEND Internal Medicine Infectious Disease
DX: M86.9 Osteomyelitis, unspecified (principal); Z18.9 Retained foreign body fragments, unspecified material

== ENCOUNTER → 2020-05-22 | Day surgery (SDC) | payer MEDICARE, OTHER ==
[~2020-05-22] MED LIST: LIDOCAINE 1% INJ 10MG/ML (20 ML MDV) SQ ONE
[2020-05-22 11:42] VITALS: BP 172/89; PULSE 66; RESP 18; TEMP 97.9
--- NOTE | 2020-05-22 14:05 | IR ---
EXAMINATION TYPE: IR cvc insert >=5 years DATE OF EXAM: 05/22/2020 COMPARISON: None CLINICAL HISTORY: Infection, long-term antibiotics POWER GENERATION EQUIPMENT REPAIRER: Dr. Maria Guadalupe Shelley PROCEDURE: The procedure was discussed with the patient. The risks, complications, benefits, and alternatives we re discussed and any questions were answered. Informed consent was obtained. The patient was placed supine. Maximal barrier technique utilized. After informed consent, the skin o verlying the left basilic vein was localized with ultrasound and noted to be compressible and patent. An ultrasound image was obtained and submitted on the patient's chart. Sterile technique utilized w ith the ultrasound machine. The skin overlying was prepped and draped and Lidocaine used for local an esthesia. Access was gained to the vein under ultrasound guidance with a 21 gauge needle and a 0.018 inch wire was advanced. A skin moses was made with a scalpel. Access site was dilated with Peel-Away s dominique. 4 FR single lumen catheter tailored to the appropriate length of 51 cm and advanced such that the distal tip is at the cavoatrial junction. Spot image was obtained verifying PICC placement. Angélica ter was fixed to the skin and a sterile dressing was placed following hemostasis. Catheter was aspira george and flushed with saline. Patient was discharged from the radiology department in stable condition without immediate complication. Fluoro time: 0.2 minutes Fluoroscopic images obtained: 8 IMPRESSION: Status post ultrasound-guided and fluoroscopic-guided PICC placement, ready for use.
== END ==
LOC: CATHCVL 11:28
PROVIDERS: ATTEND Radiology Diagnostic Radiology
DX: E11.69 Type 2 diabetes mellitus with other specified complication (principal); M86.8X7 Other osteomyelitis, ankle and foot; L08.9 Local infection of the skin and subcutaneous tissue, unspecified; B95.61 Methicillin susceptible Staphylococcus aureus infection as the cause of diseases classified elsewhere; I73.9 Peripheral vascular disease, unspecified; M19.90 Unspecified osteoarthritis, unspecified site; E78.5 Hyperlipidemia, unspecified; I10 Essential (primary) hypertension; Z89.431 Acquired absence of right foot; Z79.2 Long term (current) use of antibiotics; Z88.0 Allergy status to penicillin; Z79.51 Long term (current) use of inhaled steroids; Z79.899 Other long term (current) drug therapy
CPT/HCPCS: 36573; C1751; C1769; J0690; J2001

== ENCOUNTER 2020-06-03 15:34 | Emergency (ER) | payer MEDICARE, OTHER ==
[2020-06-03 15:43] VITALS: RESP 18
--- NOTE | 2020-06-03 16:17 | ED ---
Recheck HPI - General Chief Complaint: Dizziness Stated Complaint: picc line problems Time Seen by Provider: 06/03/20 15:44 Source: patient, RN notes reviewed, old records reviewed Mode of arrival: ambulatory Limitations: no limitations - History of Present Illness Initial Comments: This is a 49-year-old male DF presents today for evaluation of left upper extremity evaluation recheck, patient sent for PICC line evaluation both that house PICC line works as well as possibility of a thrombus or blood clot. Patient himself is in no distress has no other complaints maybe complains of some chest pain as normal MD Complaint: wound re-check (Patient has PICC line placed) -: days(s) Returns Today for: persistent/worsening pain related to initial visit (Patient made a little worse pain) Symptoms Since Prior Visit: worsening pain, worsening swelling, worsening redness Context: called for abnormal lab result Associated Symptoms: none - Related Data Home Medications Medication Instructions Recorded Confirmed Cyclobenzaprine [Flexeril] 10 mg PO TID 10/09/14 06/03/20 Pregabalin [Lyrica] 300 mg PO BID 10/09/14 06/03/20 DULoxetine HCL [Cymbalta] 60 mg PO BID 01/19/15 06/03/20 lamoTRIgine [LaMICtal] 100 mg PO BID 01/19/15 06/03/20 lisinopriL [Prinivil] 20 mg PO DAILY 01/19/15 06/03/20 Butalb/APAP/Caff 50-325-40Mg 1 tab PO Q8H PRN 10/26/18 06/03/20 [Fioricet 50-325-40] Albuterol Inhaler [Ventolin Hfa 2 puff INHALATION RT-QID PRN 06/03/20 06/03/20 Inhaler] Previous Rx's Medication Instructions Recorded Apixaban [Eliquis Starter Pack 0 mg PO DIRECTED 30 Days #1 pack 06/03/20 (for VTE)] Apixaban [Eliquis] 5 mg PO BID #60 tab 06/03/20 Cephalexin [Keflex] 500 mg PO Q8HR 14 Days #42 cap 06/03/20 Allergies Allergy/AdvReac Type Severity Reaction Status Date / Time Penicillins Allergy Unknown Verified 06/03/20 17:49 Childhood Review of Systems ROS Statement: Those systems with pertinent positive or pertinent negative responses have been documented in the HPI. ROS Other: All systems not noted in ROS Statement are negative. Past Medical History Past Medical History: Diabetes Mellitus, Deep Vein Thrombosis (DVT), GERD/Reflux, Hyperlipidemia, Hypertension, Osteoarthritis (OA), Sleep Apnea/CPAP/BIPAP Additional Past Medical History / Comment(s): BACK PAIN, HIATAL HERNIA , HX OF DVT 2002 , No longer uses C-PAP MACHINE, HX OF FALL FROM 6 FT LADDER & COLLAPSED LUNG., NEUROPATHY LEGS & FEET. History of Any Multi-Drug Resistant Organisms: MRSA Date of last positivie culture/infection: 05/2015 MDRO Source:: Right Hand, Base of head and neck Past Surgical History: Bariatric Surgery, Cholecystectomy, Hernia Repair, Ort hopedic Surgery Additional Past Surgical History / Comment(s): EGD 09/07 , INGUINAL HERNIA, LEFT ROTATOR CUFF REPAIR, THUMB SURG., LUNG SURGERY (2002 AFTER FALL ).01-26-15 HAD Geoff PUENTES SX- ROU EN Y. 2014 amputation of 3rd and 4th toe right foot. No toes on right foot. Past Anesthesia/Blood Transfusion Reactions: No Reported Reaction Past Psychological History: No Psychological Hx Reported Smoking Status: Current every day smoker Past Alcohol Use History: None Reported Past Drug Use History: None Reported, Marijuana - Past Family History Mother Family Medical History: Deep Vein Thrombosis (DVT) Father Family Medical History: Cancer Additional Family Medical History / Comment(s): . General Exam - General Exam Comments Initial Comments: PICC line is clean dry and intact with mild redness and erythema, some mild tenderness all proximal to PICC line insertion site Limitations: no limitations General appearance: alert, in no apparent distress Head exam: Present: atraumatic, normocephalic, normal inspection Eye exam: Present: normal appearance, PERRL, EOMI. Absent: scleral icterus, conjunctival injection, periorbital swelling ENT exam: Present: normal exam, mucous membranes moist Neck exam: Present: normal inspection. Absent: tenderness, meningismus, lymphadenopathy Respiratory exam: Present: normal lung sounds bilaterally. Absent: respiratory distress, wheezes, rales, rhonchi, stridor Cardiovascular Exam: Present: regular rate, normal rhythm, normal heart sounds. Absent: systolic murmur, diastolic murmur, rubs, gallop, clicks GI/Abdominal exam: Present: soft, normal bowel sounds. Absent: distended, tenderness, guarding, rebound, rigid Extremities exam: Present: normal inspection, full ROM, normal capillary refill. Absent: tenderness, pedal edema, joint swelling, calf tenderness Back exam: Present: normal inspection Neurological exam: Present: alert, oriented X3, CN II-XII intact Psychiatric exam: Present: normal affect, normal mood Skin exam: Present: warm, dry, intact, normal color. Absent: rash Course Vital Signs 06/03/20 15:39 Temperature 97.6 F Pulse Rate 73 Respiratory 18 Rate Blood Pressure 165/92 O2 Sat by Pulse 100 Oximetry - Reevaluation(s) Reevaluation #1: 06/03/20 19:11 Medical record is reviewed Reevaluation #2: 06/03/20 19:11 Patient family consulted spoke with - Consultations Consultation #1: Spoke with Dr. zoya otero regarding findings here in the ER he is okay for discharge Consultation #2: Spoke with Dr. Crump again plan is made for discharge on blood thinners and antibiotics Medical Decision Making - Medical Decision Making 49 male DF for evaluation of left upper extremity erythema and tenderness. P atient does have positive blood clot left upper extremity, will place on [place] continue oral antibiotics - EKG Data -: EKG Interpreted by Me (EKG is sinus rhythm 65 NM 150 QRS 96 QTc 411) - Radiology Data Radiology results: report reviewed (Ultrasound left upper extremity positive for DVT), image reviewed Disposition Clinical Impression: Status post PICC central line placement, Left upper extremity deep vein thrombosis Narrative: Re Eval Picc Line Disposition: HOME SELF-CARE Condition: Good Instructions (If sedation given, give patient instructions): Peripherally Ins erted Central Catheters and Midline Catheters in... (DC), Deep Vein Thrombosis (ED) Prescriptions: Apixaban [Eliquis] 5 mg PO BID #60 tab Apixaban [Eliquis Starter Pack (for VTE)] 0 mg PO DIRECTED 30 Days #1 pack Cephalexin [Keflex] 500 mg PO Q8HR 14 Days #42 cap Is patient prescribed a controlled substance at d/c from ED?: No Referrals: Viv Pereira MD [Primary Care Provider] - 1-2 days
--- NOTE | 2020-06-03 19:17 | US ---
EXAMINATION TYPE: US venous doppler duplex UE LT DATE OF EXAM: 06/03/2020 COMPARISON: NONE CLINICAL HISTORY: pain. Pain in left arm x 1 week. Hx of DVT in right lower extremity. Patient does n ot take blood thinners. PICC line in place. SIDE PERFORMED: Left Left Arm: There appear to be internal echoes within the left IJV. Color flow is seen with slight colo r defect. Unable to completely compress left lower IJV. Possible non-occlusive thrombus? PICC line appears to be in left brachial vein. Minimal internal echoes seen around PICC line. Image # 11 shows incomplete compression of one of the brachial veins. Color flow is visualized with slight co jasper defect within this brachial vein. Possible non-occlusive thrombus? IMPRESSION: Ultrasound findings consistent with partial occlusive superficial venous thrombosis near PICC line left brachial vein. There is partial occlusive deep thrombus in the left internal jugular v ein felt present towards the end of study.
[2020-06-03] MEDS ORDERED: CEPHALEXIN 500 MG CAP PO STA (20:08)
[2020-06-03] MEDS ORDERED: CEPHALEXIN 500MG STARTER PACK 4 CAP BTL PO STA (20:08)
[2020-06-03] MEDS ORDERED: APIXABAN 5 MG TAB PO SCH (21:00)
[2020-06-03 21:29] VITALS: BP 166/98; PULSE 69; TEMP 97.9
== END 2020-06-03 20:27 | disposition home or self-care (01) ==
LOC: EC 15:34
DX: I82.622 Acute embolism and thrombosis of deep veins of left upper extremity (principal); I10 Essential (primary) hypertension; M54.9 Dorsalgia, unspecified; M19.90 Unspecified osteoarthritis, unspecified site; G47.30 Sleep apnea, unspecified; G57.90 Unspecified mononeuropathy of unspecified lower limb; F17.200 Nicotine dependence, unspecified, uncomplicated; Z79.899 Other long term (current) drug therapy; Z88.0 Allergy status to penicillin; Z99.89 Dependence on other enabling machines and devices; Z86.718 Personal history of other venous thrombosis and embolism; Z95.828 Presence of other vascular implants and grafts
CPT/HCPCS: 93005; 99284